=== PATIENT | male | born 1975 | race Caucasian/White ===

== ENCOUNTER 2018-08-16 17:18 | Emergency (ER) | payer MEDICAID, OTHER ==
[2018-08-16 18:09] VITALS: BP 154/98
--- NOTE | 2018-08-16 18:11 | UC ---
Throat Pain/Nasal Jose HPI - HPI Summary HPI Summary: 43 y/o male presents to the urgent care c/o sore throat for the past 2 days. Pt reports pain w/ swallowing is 7/10. He took Ibuprofen PO 600mgPO last night. This morning pain increase. Pt denies fever, BARRIENTOS. dizziness, URI symptoms, SOB, chest pain, abdominal pain, N/V/D. - History of Current Complaint Chief Complaint: UCRespiratory Stated Complaint: SORE THROAT Time Seen by Provider: 08/16/18 18:10 Hx Obtained From: Patient Onset/Duration: Gradual Onset, Lasting Days - 2 days, Still Present, Worse Since - today Severity: Moderate Pain Intensity: 7 Pain Scale Used: 0-10 Numeric Cough: None Associated Signs & Symptoms: Positive: Dysphagia. Negative: Sinus Discomfort, Nasal Discharge, Fever, Vomiting, Rash - Epiglottits Risk Factors Epiglottis Risk Factors: Negative - Allergies/Home Medications Allergies/Adverse Reactions: Allergies Allergy/AdvReac Type Severity Reaction Status Date / Time No Known Allergies Allergy Verified 08/16/18 18:08 Home Medications: Home Medications Pheniramine/P-Eph/Acetaminophn [Theraflu Flu & Sore Throat] 1 each PO PRN [History] PMH/Surg Hx/FS Hx/Imm Hx Previously Healthy: Yes Other GI/ History: IBS - Surgical History Surgical History: None - Family History Known Family History: Positive: None - Pt denies PMHX - Social History Occupation: Employed Full-time Lives: With Family Alcohol Use: Occasionally Substance Use Type: None Smoking Status (MU): Current Every Day Smoker Amount Used/How Often: 1 PPD Review of Systems All Other Systems Reviewed And Are Negative: Yes Constitutional: Positive: Negative Skin: Positive: Negative Eyes: Positive: Negative ENT: Positive: Sore Throat Respiratory: Positive: Negative Cardiovascular: Positive: Negative Gastrointestinal: Positive: Negative Genitourinary: Positive: Negative Motor: Positive: Negative Neurovascular: Positive: Negative Musculoskeletal: Positive: Negative Neurological: Positive: Negative Psychological: Positive: Negative Is Patient Immunocompromised?: No Physical Exam - Summary Physical Exam Summary: VITAL SIGNS: Reviewed. GENERAL: Patient is a well developed and nourished male who is sitting comfortable in the examining table. Patient is not in any acute respiratory distress. HEAD AND FACE: No signs of trauma. No ecchymosis, hematomas or skull depressions. No sinus tenderness. EYES: PERRLA, EOMI x 2, No injected conjunctiva, no nystagmus. No photophobia. EARS: Hearing grossly intact. Ear canals and tympanic membranes are within normal limits. MOUTH: Positive pharynx with erythema, exudates, palatal petechiae. B/L tonsillar enlargement with exudate. Uvula in midline. NECK: Supple, trachea is midline, Positive anterior cervical lymphadenopathy, no JVD, no carotid bruit, no c-spine tenderness, neck with full ROM. No meningeal signs, no Kernig's or brudzinskis signs. CHEST: Symmetric, no tenderness at palpation LUNGS: Clear to auscultation bilaterally. No wheezing or crackles. CVS: Regular rate and rhythm, S1 and S2 present, no murmurs or gallops appreciated. ABDOMEN: Soft, non-tender. No signs of distention. No rebound no guarding, and no masses palpated. Bowel sounds are normal. EXTREMITIES: FROM in all major joints, no edema, no cyanosis or clubbing. NEURO: Alert and oriented x 3. No acute neurological deficits. Speech is normal and follows commands. SKIN: Dry and warm Triage Information Reviewed: Yes Vital Signs: Initial Vital Signs Temp 97.6 F 08/16/18 18:03 Pulse 106 08/16/18 18:03 Resp 18 08/16/18 18:03 BP 154/98 08/16/18 18:03 Pulse Ox 98 08/16/18 18:03 Throat Pain/Nasal Course/Dx - Course Course Of Treatment: 43 y/o male presents to the urgent care c/o sore throat for the past 2 days. Pt reports pain w/ swallowing is 7/10. He took Ibuprofen PO 600mgPO last night. This morning pain increase. Pt denies fever, BARRIENTOS. dizziness, URI symptoms, SOB, chest pain, abdominal pain, N/V/D.Hx obtained. Pt w/ pharyngitis and oral Cadidiasis on examination. Rapid strep: negative. Pt given at the clinic Viscous Lidocaine PO to alleviate symptoms by nurse. Pt tolerated well medication and felt better. Pt Rx Ibuprofen PO, Nystatin PO and Chlorhexidine Mouthwash to alleviate symptoms. Pt advised to f/u w/ PCP in 3 days if not improvement of symptoms. Pt's BP is elevated today advised to decrease salt in diet, monitor BP and f/u with PCP for further management. D/C instructions explained. Pt understood and agreed w/ plan of care. - Differential Dx/Diagnosis Differential Diagnosis/HQI/PQRI: Influenza, Laryngitis, Otitis Media, Pharyngitis, Sinusitis, URI Provider Diagnosis: Elevated BP without diagnosis of hypertension, Pharyngitis, Candidiasis of mouth Discharge - Sign-Out/Discharge Documenting (check all that apply): Patient Departure - D/C home All imaging exams completed and their final reports reviewed: No Studies - Discharge Plan Condition: Stable Disposition: HOME Prescriptions: Chlorhexidine MOUTHWASH 0.12%* [Peridex Mouth Wash 0.12%*] 15 ml .SEE ORDER BID #1 oral.soln Ibuprofen TAB* [Motrin TAB* 800 MG] 800 mg PO Q6H PRN #30 tab PRN Reason: Pain Nystatin SUSPENSION ORAL SYR* 100,000 units PO QID #1 [facility] [place] Patient Education Materials: Pharyngitis (ED), Oral Candidiasis (ED) Referrals: [facility] [Outside] - 3 Days Additional Instructions: 1-Please take ibuprofen PO q6-8hrs prn as instructed after meals to alleviate pain and swelling. Increase fluid intake, eat well, rest and avoid strenuous exercise 2-Take Nystatin PO as directed and also take Chlorhexidine PO as directed to alleviate symptoms 3-If symptoms do not improve or worsen please return to the urgent care or f/u with your PCP in 3 days for further evaluation and treatment. 4- Your BP is elevated today. please decrease salt in your diet, monitor BP and if it continues to be elevated please f/u with your PCP for further management. - Billing Disposition and Condition Condition: STABLE Disposition: Home
[2018-08-16] MEDS ORDERED: Lidocaine 2% VISCOUS* 15 ML UDC PO ONE (18:46)
== END 2018-08-16 19:09 | disposition home or self-care (01) ==
LOC: UCEAST 17:18
DX: R03.0 Elevated blood-pressure reading, without diagnosis of hypertension (principal); J02.9 Acute pharyngitis, unspecified; B37.0 Candidal stomatitis; F17.210 Nicotine dependence, cigarettes, uncomplicated
CPT/HCPCS: 87651; 99202; G0463

== ENCOUNTER 2018-08-17 21:19 | Emergency (ER) | payer OTHER ==
[2018-08-17] MEDS ORDERED: NS 0.9% 1000 ML* 1,000 ML IV ONE (21:47)
[2018-08-17] MEDS ORDERED: methylPREDNISolone 125 MG* 2 ML VIAL IV ONE (21:47)
[2018-08-17] MEDS ORDERED: Ketorolac INJ* 15 MG/ML 1 ML VIAL IV PUSH ONE (21:47)
[2018-08-17 22:20] LABS: ABS Basophils 0 10^3/ul (0-0.2); ABS Eosinophils 0 10^3/ul (0-0.6); ABS Lymphocytes 1.1 10^3/ul (1.0-4.8); ABS Monocytes 1.1 10^3/ul (0-0.8); ABS Neutrophils 14.6 10^3/ul (1.5-7.7); ABS Nucleated RBC 0 10^3/ul; Eosinophil % 0 %; Hematocrit 46 % (42-52); Hemoglobin 15.8 g/dl (14.0-18.0); Lymphocyte % 6.8 %; Mean Corpuscular HGB Conc 35 g/dl (31-36); Mean Corpuscular Hemoglobin 31 pg (27-31); Mean Corpuscular Volume 90 fL (80-94); Nucleated Red Blood Cells % 0; Platelet Count 178 10^3/ul (150-450); Red Blood Count 5.08 10^6/ul (4.00-5.40); Red Cell Distribution Width 14 % (10.5-15); White Blood Count 16.8 10^3/ul (3.5-10.8)
--- NOTE | 2018-08-17 22:27 | ED ---
Throat Pain/Nasal Congestion - HPI Summary HPI Summary: The patient is a 43 year old male who is presenting to the [facility] with a chief complaint of sore throat. Onset of the sore throat was 3 days ago and the symptom is constant. Other symptoms reported include coughing and a feeling of "closure" in his throat. The patient currently has difficulty swallowing and difficulty eating. The patient was seen previously for the sore throat in [facility]. PMHx includes IBS which is under control. He denies DM and HTN. Patient is a current smoker. Pain is rated to be 10/10. Symptoms aggravated by nothing and alleviated by nothing. - History of Current Complaint Chief Complaint: EDThroatPain Time Seen by Provider: 08/17/18 21:35 Hx Obtained From: Patient Onset/Duration: Gradual Onset Severity: Severe Cough: Nonproductive - Allergies/Home Medications Allergies/Adverse Reactions: Allergies Allergy/AdvReac Type Severity Reaction Status Date / Time No Known Allergies Allergy Verified 08/17/18 21:27 PMH/Surg Hx/FS Hx/Imm Hx Endocrine/Hematology History: Denies: Hx Diabetes Cardiovascular History: Denies: Hx Hypertension GI History: Reports: Other GI Disorders - IBS Opthamlomology History: Denies: Hx Legally Blind EENT History: Denies: Hx Deafness Infectious Disease History: No Infectious Disease History: Denies: Traveled Outside the [place] in Last 30 Days - Family History Known Family History: Positive: None - Pt denies PMHX Family History: Reviewed and Noncontributory - Social History Alcohol Use: Weekly Substance Use Type: Reports: None Smoking Status (MU): Current Every Day Smoker Amount Used/How Often: 1 PPD Review of Systems Constitutional: Negative Eyes: Negative ENT: Other - Feeling of "closure" in his throat Positive: Sore Throat - Difficulty swallowing and eating Cardiovascular: Negative Positive: Cough Gastrointestinal: Negative Genitourinary: Negative Musculoskeletal: Negative Skin: Negative Neurological: Negative Psychological: Normal All Other Systems Reviewed And Are Negative: Yes Physical Exam - Summary Physical Exam Summary: VITAL SIGNS: Reviewed. GENERAL: Patient is a well-developed and nourished (MALE) who is lying comfortable in the stretcher. Patient is not in any acute respiratory distress. HEAD AND FACE: No signs of trauma. No ecchymosis, hematomas or skull depressions. No sinus tenderness. EYES: PERRLA, EOMI x 2, No injected conjunctiva, no nystagmus. EARS: Hearing grossly intact. Ear canals and tympanic membranes are within normal limits. MOUTH: Pharyngeal hyperemia NECK: Supple, trachea is midline, no adenopathy, no JVD, no carotid bruit, no c- spine tenderness, neck with full ROM. CHEST: Symmetric, no tenderness at palpation LUNGS: Clear to auscultation bilaterally. No wheezing or crackles. CVS: Regular rate and rhythm, S1 and S2 present, no murmurs or gallops appreciated. ABDOMEN: Soft, non-tender. No signs of distention. No rebound no guarding, and no masses palpated. Bowel sounds are normal. EXTREMITIES: FROM in all major joints, no edema, no cyanosis or clubbing. NEURO: Alert and oriented x 3. No acute neurological deficits. Speech is normal and follows commands. SKIN: Dry and warm Triage Information Reviewed: Yes Vital Signs On Initial Exam: Initial Vitals Temp Pulse Resp BP Pulse Ox 97.2 F 121 16 123/94 98 08/17/18 21:26 08/17/18 21:26 08/17/18 21:26 08/17/18 21:26 08/17/18 21:26 Vital Signs Reviewed: Yes Diagnostics - Vital Signs Vital Signs Temp Pulse Resp BP Pulse Ox 08/17/18 22:07 107 98 08/17/18 21:26 97.2 F 121 16 123/94 98 - Laboratory Lab Results: Lab Results 08/17/18 Range/Units 22:11 WBC 16.8 H (3.5-10.8) 10^3/ul RBC 5.08 (4.00-5.40) 10^6/ul Hgb 15.8 (14.0-18.0) g/dl Hct 46 (42-52) % MCV 90 (80-94) fL MCH 31 (27-31) pg MCHC 35 (31-36) g/dl RDW 14 (10.5-15) % Plt Count 178 (150-450) 10^3/ul MPV 8.0 (7.4-10.4) fL Neut % (Auto) 86.8 % Lymph % (Auto) 6.8 % Glascock % (Auto) 6.3 % Eos % (Auto) 0 % Baso % (Auto) 0.1 % Absolute Neuts (auto) 14.6 H (1.5-7.7) 10^3/ul Absolute Lymphs (auto) 1.1 (1.0-4.8) 10^3/ul Absolute Monos (auto) 1.1 H (0-0.8) 10^3/ul Absolute Eos (auto) 0 (0-0.6) 10^3/ul Absolute Basos (auto) 0 (0-0.2) 10^3/ul Absolute Nucleated RBC 0 10^3/ul Nucleated RBC % 0 Result Diagrams: 08/17/18 22:11 08/17/18 22:11 Lab Statement: Any lab studies that have been ordered have been reviewed, and results considered in the medical decision making process. - CT Neck CT CT Interpretation Completed By: Radiologist Summary of CT Findings: Neck CT as per radiologist report reveals 1. There is mild thickening of the pharyngeal mucosal space at the level of the. oral cavity and hypopharynx including thickening of the epiglottis suspicious. for pharyngitis and mild epiglottitis but no visible abscess. The airway is. widely patent. 2. There is mild bilateral level II cervical lymphadenopathy. ED physician has reviewed this radiology report. EENT Course/Dx - Course Course Of Treatment: The patient is 43 year old male who is presenting to the [facility] with a chief complaint of a sore throat. [facility] Exam did show erythema without exudate. Patient is not drooling and is able to speak. He was given steroids and lidocaine viscous. He received a CT Neck in the [facility]. Pt has repeat rapid strep which also came back negative. The patient will be discharged home. The dx will be pharyngitis. We discussed the plan with the patient and he is agreeable. - Diagnoses Provider Diagnoses: Pharyngitis Discharge - Sign-Out/Discharge Documenting (check all that apply): Patient Departure - Discharge Plan Condition: Stable Disposition: HOME Prescriptions: Amoxicillin/Clavulanate TAB* [Augmentin TAB 875*] 875 mg PO BID #20 tab Ibuprofen TAB* [Motrin TAB* 800 MG] 800 mg PO Q6H PRN #30 tab PRN Reason: Pain predniSONE TAB* [Deltasone TAB*] 50 mg PO DAILY #5 tab Referrals: No Primary Care Phys,NOPCP [Primary Care Provider] - - Attestation Statements Document Initiated by Jarode: Yes Documenting Scribe: James Bernardo Provider For Whom Scribe is Documenting (Include Credential): Dr. Alexey Santana Scribe Attestation: I, James Bernardo, scribed for Dr. Alexey Santana on 08/18/18 at 0048. Status of Scribe Document: Ready
[2018-08-17 22:36] LABS: Albumin 4.4 g/dL (3.2-5.2); Albumin/Globulin Ratio 1.3 (1-3); BUN/Creatinine Ratio 13.7 (8-20); C Reactive Protein 105.76 mg/L (<8.01); Calcium 9.4 mg/dL (8.6-10.3); EGFR Non-African American 79.7 (>60); Globulin 3.4 g/dL (2-4); Magnesium 2.1 mg/dL (1.9-2.7); Potassium 3.6 mmol/L (3.5-5.0); Total Bilirubin 1.3 mg/dL (0.2-1.0); Total Protein 7.8 g/dL (6.4-8.9)
[2018-08-17] MEDS ORDERED: Iohexol 300* (CONTRAST) 10 ML SDV IV ONE (22:42)
[2018-08-17] MEDS ORDERED: Piperacillin/Tazobac ADVAN(*) 3.375 GM in NS 0.9% 100 ML* 100 ML IVPB ONE (23:56)
[2018-08-18] MEDS ORDERED: Lidocaine 2% VISCOUS* 15 ML UDC PO ONE ×2 (00:05→00:55)
[2018-08-18] MEDS ORDERED: Lidocaine 2% VISCOUS* 15 ML UDC ONE (01:00)
[2018-08-18 01:16] VITALS: BP 127/79
== END 2018-08-18 01:12 | disposition home or self-care (01) ==
LOC: ED 21:19
DX: J02.9 Acute pharyngitis, unspecified (principal); R59.0 Localized enlarged lymph nodes; F17.200 Nicotine dependence, unspecified, uncomplicated
CPT/HCPCS: 36415; 70491; 80053; 83735; 85025; 86140; 87651; 96365; 96375; 99284; J1885; J2543; J2930; Q9967